=== PATIENT | female | born 1965 | race Caucasian/White ===

== ENCOUNTER → 2021-10-02 | Outpatient (CLI) | payer OTHER ==
[2021-10-02 15:03] VITALS: BP 125/74; PULSE 64; RESP 17; TEMP 97.9
--- NOTE | 2021-10-02 15:54 | P.HPOB ---
History of Present Illness H&P Date: 10/02/21 Chief Complaint: The patient is here for her routine gynecologic exam and ma mmogram. This is a 56-year-old [id number] with an LMP of 2008. The patient is here to establish with this office. It has been about 12 years since her last pelvic exam. She is without gynecologic complaints and denies any postmenopausal bleeding. Review of Systems The patient's weight has been stable over the last year. She denies respiratory, cardiac, or G.I. problems. Past Medical History Past Medical History: Hyperlipidemia Additional Past Medical History / Comment(s): Vertigo, headaches and predi abetes. 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 History of Any Multi-Drug Resistant Organisms: None Reported Past Surgical History: Tubal Ligation Additional Past Surgical History / Comment(s): Ganglion cysts removed. D&C. Past Psychological History: No Psychological Hx Reported Smoking Status: Never smoker Past Alcohol Use History: None Reported Past Drug Use History: None Reported Additional History: She has been since 1989. 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 - Past Family History Brother(s) Family Medical History: Hypertension Mother Family Medical History: Thyroid Disorder Additional Family Medical History / Comment(s): Depression. Father Family Medical History: Unable to Obtain Medications and Allergies Home Medications Medication Instructions Recorded Confirmed Type Atorvastatin Calcium [Lipitor] 10 mg PO DAILY 10/02/21 10/02/21 History Allergies Allergy/AdvReac Type Severity Reaction Status Date / Time No Known Allergies Allergy Unverified 10/02/21 14:57 Exam Vital Signs Temp Pulse Resp BP Pulse Ox 10/02/21 14:59 97.9 F 64 17 125/74 99 Intake and Output 10/02/21 10/02/21 10/02/21 06:59 14:59 22:59 Other: Weight 102.965 kg Height 5 feet 6 inches, weight 227 pounds, BMI 36.6. This is a well-developed well-nourished white female who is alert and oriented times 3 in no acute distress. HEENT: Within normal limits. NECK: Supple without mass or thyromegaly. CHEST AND LUNGS: Clear to auscultation. HEART: Regular rate and rhythm. BREASTS: Are without mass or discharge. AXILLARY EXAM: Negative for adenopathy. BACK: Negative for CVA tenderness. ABDOMEN: Soft, nontender, without palpable masses. PELVIC EXAM: Normal external genitalia with mild atrophy. Cervix and vagina appear normal with mild atrophy. There is no unusual discharge. There is no evidence of prolapse. The uterus is midposition, nongravid size and nontender. There are no palpable adnexal masses or tenderness. RECTAL EXAM: Rectal exam was refused by the patient. EXTREMITIES: Nontender. IMPRESSION: 1. 56-year-old menopausal female with normal gynecologic exam. PLAN: 1. Pap smear cotest was performed. 2. Self breast awareness was discussed with the patient. We have also discussed symptoms associated with inflammatory breast cancer. 3. Screening mammogram will be done today. 4. Osteoporosis prevention was discussed. I have stressed the importance of adequate calcium, vitamin D and regular exercise. Recommended amounts of calcium and vitamin D were also discussed. 5. She has not received a Covid vaccination. She states she did have cold it in the past. She understands the CDC recommends Covid vaccination even if she has had Covid in the past. She will consider this. 6. I have stressed the importance of regular mammograms and regular gynecologic exams. She was advised to return in one year for her annual well woman exam.
--- NOTE | 2021-10-04 13:20 | MM ---
Reason for exam: screening (asymptomatic). History: Patient is postmenopausal. Physical Findings: A clinical breast exam by your physician is recommended on an annual basis and results should be correlated with mammographic findings. MG Screening Mammo w CAD Bilateral CC and MLO view(s) were taken. No prior studies available for comparison. No significant changes when compared with prior studies. ASSESSMENT: Negative, BI-RAD 1 RECOMMENDATION: Routine screening mammogram of both breasts in 1 year.
== END | disposition home or self-care (01) ==
LOC: WWCWWP 14:43
PROVIDERS: ATTEND Obstetrics & Gynecology
DX: Z12.31 Encounter for screening mammogram for malignant neoplasm of breast (principal)
CPT/HCPCS: 77067